=== PATIENT | female | born 1940 | race Two or more races ===

== ENCOUNTER → 2021-11-13 | Outpatient (CLI) | payer MEDICARE | END | disposition home or self-care (01) | LOC: LAB 09:39 → LAB SHORT 09:39 | DX: R30.0 Dysuria (principal) | CPT/HCPCS: 87077; 87086; 87186 ==

== ENCOUNTER 2021-12-17 11:57 | Emergency (ER) | payer MEDICARE ==
[~2021-12-17] VITALS: Ht 154.9 cm; Wt 93.4 kg
[2021-12-17] MEDS ORDERED: Prinivil10 MG PO (12:23)
[2021-12-17] MEDS ORDERED: BETAPACE PO (12:23)
[2021-12-17] MEDS ORDERED: GABA100 PO (12:24)
[2021-12-17] MEDS ORDERED: ZOLOFT50 MG PO (12:24)
[2021-12-17] MEDS ORDERED: BUSPIRONE HCL5 M6 PO (12:24)
[2021-12-17] MEDS ORDERED: XARELTO20 M1 PO (12:24)
[2021-12-17 13:00] LABS: BASOPHILS ABSOLUTE AUTO 0.03 K/mm3 (0.00-0.23); BASOPHILS PERCENT AUTO 0 % (0-2); EOSINOPHILS ABSOLUTE AUTO 0.22 K/mm3 (0.00-0.68); EOSINOPHILS PERCENT AUTO 3 % (0-6); Hematocrit 41.1 % (33.0-51.0); Hemoglobin 13.3 g/dL (11.5-16.0); IMMATURE GRAN ABSOLUTE AUTO 0.01 K/mm3 (0.00-0.10); IMMATURE GRAN PERCENT AUTO 0 % (0-1); LYMPHOCYTES ABSOLUTE AUTO 2.82 K/mm3 (0.84-5.20); LYMPHOCYTES PERCENT AUTO 41 % (21-46); MONOCYTES ABSOLUTE AUTO 0.52 K/mm3 (0.16-1.47); MONOCYTES PERCENT AUTO 8 % (4-13); Mean Corpuscular HGB 28.6 pg (26.0-34.0); Mean Corpuscular HGB Conc 32.4 g/dL (31.5-36.5); Mean Corpuscular Volume 88 fL (80-100); Mean Platelet Volume 12.3 fL (9.1-12.4); NEUTROPHILS ABSOLUTE AUTO 3.34 K/mm3 (1.96-9.15); NEUTROPHILS PERCENT AUTO 48 % (41-73); Platelet Count 174 K/mm3 (150-400); RDW Coefficient Variation 13.4 % (11.7-14.2); RDW Standard Deviation 43.3 fL (35.1-46.3); Red Blood Cell Count 4.65 M/mm3 (3.80-5.20); White Blood Cell Count 6.94 K/mm3 (4.00-11.30)
[2021-12-17 13:22] LABS: Albumin, Blood 2.8 g/dL (3.4-5.0); Albumin/Globulin Ratio 0.8 (0.8-1.8); Bilirubin, Total 0.7 mg/dL (0.1-1.0); Bun/Creatinine Ratio 25.1 (12.0-20.0); Calcium, Blood 9.7 mg/dL (8.5-10.1); Creatinine, Blood 0.76 mg/dL (0.40-1.00); Globulin, Blood 3.7 g/dL (2.2-4.0); Potassium, Blood 3.7 mmol/L (3.5-5.5); Total Protein, Blood 6.5 g/dL (6.4-8.2)
== END 2021-12-17 15:09 | disposition home or self-care (01) ==
LOC: ER 11:57
PROVIDERS: Student in an Organized Health Care Education/Training Program
DX: R07.89 Other chest pain (principal); R00.1 Bradycardia, unspecified; Z88.2 Allergy status to sulfonamides; Z79.899 Other long term (current) drug therapy; Z79.01 Long term (current) use of anticoagulants; I48.91 Unspecified atrial fibrillation; Z87.891 Personal history of nicotine dependence
CPT/HCPCS: 36415; 71046; 80053; 83735; 84484; 85025; 93005; 93010; 96361; 96374; 96375; 99285-25; A9270; J2405; J7030

== ENCOUNTER 2021-12-24 09:14 | Emergency (ER) | payer MEDICARE ==
[~2021-12-24] VITALS: Ht 154.9 cm; Wt 93.9 kg
[~2021-12-24 09:14] MED LIST: BETAPACE PO; BUSPIRONE HCL5 M6 PO; GABA100 PO; Prinivil10 MG PO; XARELTO20 M1 PO; ZOLOFT50 MG PO
[2021-12-24 10:59] LABS: BASOPHILS ABSOLUTE AUTO 0.03 K/mm3 (0.00-0.23); BASOPHILS PERCENT AUTO 1 % (0-2); EOSINOPHILS ABSOLUTE AUTO 0.27 K/mm3 (0.00-0.68); EOSINOPHILS PERCENT AUTO 4 % (0-6); Hematocrit 41.7 % (33.0-51.0); Hemoglobin 13.9 g/dL (11.5-16.0); IMMATURE GRAN ABSOLUTE AUTO 0.02 K/mm3 (0.00-0.10); IMMATURE GRAN PERCENT AUTO 0 % (0-1); LYMPHOCYTES ABSOLUTE AUTO 2.28 K/mm3 (0.84-5.20); LYMPHOCYTES PERCENT AUTO 35 % (21-46); MONOCYTES PERCENT AUTO 8 % (4-13); Mean Corpuscular HGB 29.4 pg (26.0-34.0); Mean Corpuscular HGB Conc 33.3 g/dL (31.5-36.5); Mean Corpuscular Volume 88 fL (80-100); Mean Platelet Volume 12.4 fL (9.1-12.4); NEUTROPHILS PERCENT AUTO 53 % (41-73); Platelet Count 178 K/mm3 (150-400); RDW Coefficient Variation 13.5 % (11.7-14.2); RDW Standard Deviation 44.3 fL (35.1-46.3); Red Blood Cell Count 4.72 M/mm3 (3.80-5.20)
[2021-12-24 11:16] LABS: Albumin, Blood 3.1 g/dL (3.4-5.0); Albumin/Globulin Ratio 0.9 (0.8-1.8); Bilirubin, Total 0.9 mg/dL (0.1-1.0); Bun/Creatinine Ratio 18.1 (12.0-20.0); Calcium, Blood 9.3 mg/dL (8.5-10.1); Creatinine, Blood 0.78 mg/dL (0.40-1.00); Globulin, Blood 3.6 g/dL (2.2-4.0); Potassium, Blood 4.1 mmol/L (3.5-5.5); Total Protein, Blood 6.7 g/dL (6.4-8.2)
[2021-12-24 11:26] LABS: Source, Urine Clean Catch
[2021-12-24 11:32] LABS: Bilirubin, Urine Neg (Neg); Blood, Urine Neg (Neg); Glucose Qualitative, Urine Neg (Neg); Ketones, Urine Neg (Neg); Leukocyte Esterase, Urine Neg (Neg); Nitrite, Urine Neg (Neg); Protein, Urine Neg (Neg); Urobilinogen, Urine NORM (Normal)
[2021-12-24 11:45] LABS: Appearance, Urine Clear (Clear); Color, Urine Pale Yellow (P-Yellow)
== END 2021-12-24 13:48 | disposition home or self-care (01) ==
LOC: ER 09:14
PROVIDERS: Emergency Medicine
DX: I10 Essential (primary) hypertension (principal); I48.91 Unspecified atrial fibrillation; Z88.2 Allergy status to sulfonamides; Z79.899 Other long term (current) drug therapy
CPT/HCPCS: 70491; 71045; 80053; 81003; 85025; 86850; 86900; 86901; 93005; 93010; J2405; Q9967

== ENCOUNTER 2022-11-05 16:57 | Emergency (ER) | payer MEDICARE ==
[~2022-11-05] VITALS: Ht 154.9 cm; Wt 92.5 kg
[2022-11-05 18:26] LABS: BASOPHILS ABSOLUTE AUTO 0.04 K/mm3 (0.00-0.23); BASOPHILS PERCENT AUTO 1 % (0-2); EOSINOPHILS ABSOLUTE AUTO 0.26 K/mm3 (0.00-0.68); EOSINOPHILS PERCENT AUTO 3 % (0-6); Hematocrit 40.4 % (33.0-51.0); Hemoglobin 13.4 g/dL (11.5-16.0); IMMATURE GRAN ABSOLUTE AUTO 0.02 K/mm3 (0.00-0.10); IMMATURE GRAN PERCENT AUTO 0 % (0-1); LYMPHOCYTES ABSOLUTE AUTO 2.36 K/mm3 (0.84-5.20); LYMPHOCYTES PERCENT AUTO 31 % (21-46); MONOCYTES ABSOLUTE AUTO 0.57 K/mm3 (0.16-1.47); MONOCYTES PERCENT AUTO 7 % (4-13); Mean Corpuscular HGB 29.1 pg (26.0-34.0); Mean Corpuscular HGB Conc 33.2 g/dL (31.5-36.5); Mean Corpuscular Volume 88 fL (80-100); Mean Platelet Volume 11.6 fL (9.1-12.4); NEUTROPHILS ABSOLUTE AUTO 4.49 K/mm3 (1.96-9.15); NEUTROPHILS PERCENT AUTO 58 % (41-73); Platelet Count 193 K/mm3 (150-400); RDW Coefficient Variation 13.8 % (11.7-14.2); RDW Standard Deviation 44.5 fL (35.1-46.3); Red Blood Cell Count 4.61 M/mm3 (3.80-5.20); White Blood Cell Count 7.74 K/mm3 (4.00-11.30)
[2022-11-05 18:47] LABS: Albumin, Blood 2.9 g/dL (3.4-5.0); Albumin/Globulin Ratio 0.8 (0.8-1.8); Bilirubin, Total 0.5 mg/dL (0.1-1.0); Bun/Creatinine Ratio 23.2 (12.0-20.0); Calcium, Blood 8.9 mg/dL (8.5-10.1); Creatinine, Blood 0.78 mg/dL (0.40-1.00); Globulin, Blood 3.5 g/dL (2.2-4.0); Potassium, Blood 3.9 mmol/L (3.5-5.5); Total Protein, Blood 6.4 g/dL (6.4-8.2)
[2022-11-05 19:14] LABS: Influenza A, PCR NEGATIVE (NEGATIVE); Influenza B, PCR NEGATIVE (NEGATIVE); Resp Syncytial Virus, PCR NEGATIVE (NEGATIVE); SARS-Cov-2 (COVID-19) PCR, MMC NEGATIVE (NEGATIVE)
[2022-11-05 20:12] VITALS: BP 144/76
== END 2022-11-05 22:11 | disposition home or self-care (01) ==
LOC: ER 16:57
PROVIDERS: Emergency Medicine; Student in an Organized Health Care Education/Training Program
DX: R07.89 Other chest pain (principal); Z88.2 Allergy status to sulfonamides; Z79.899 Other long term (current) drug therapy; I10 Essential (primary) hypertension; I48.91 Unspecified atrial fibrillation; Z87.891 Personal history of nicotine dependence; Z20.822 Contact with and (suspected) exposure to COVID-19
CPT/HCPCS: 0241U; 71046; 80053; 83880; 84484; 85025; 93005; 93010; 99285-25

== ENCOUNTER → 2022-11-05 | Outpatient (CLI) | payer MEDICARE | END | disposition home or self-care (01) | LOC: LAB 16:37 → LAB SHORT 16:37 | DX: R07.9 Chest pain, unspecified (principal) | CPT/HCPCS: 84484 ==

== ENCOUNTER 2023-03-17 11:52 | Emergency (ER) | payer MEDICARE ==
[~2023-03-17] VITALS: Ht 154.9 cm; Wt 95.2 kg
[2023-03-17 12:56] LABS: BASOPHILS ABSOLUTE AUTO 0.05 K/mm3 (0.00-0.23); BASOPHILS PERCENT AUTO 1 % (0-2); EOSINOPHILS ABSOLUTE AUTO 0.32 K/mm3 (0.00-0.68); EOSINOPHILS PERCENT AUTO 5 % (0-6); Hematocrit 46.6 % (33.0-51.0); Hemoglobin 15.4 g/dL (11.5-16.0); IMMATURE GRAN ABSOLUTE AUTO 0.02 K/mm3 (0.00-0.10); IMMATURE GRAN PERCENT AUTO 0 % (0-1); LYMPHOCYTES ABSOLUTE AUTO 2.35 K/mm3 (0.84-5.20); LYMPHOCYTES PERCENT AUTO 35 % (21-46); MONOCYTES ABSOLUTE AUTO 0.42 K/mm3 (0.16-1.47); MONOCYTES PERCENT AUTO 6 % (4-13); Mean Corpuscular HGB 29.2 pg (26.0-34.0); Mean Corpuscular Volume 88 fL (80-100); Mean Platelet Volume 11.8 fL (9.1-12.4); NEUTROPHILS ABSOLUTE AUTO 3.56 K/mm3 (1.96-9.15); NEUTROPHILS PERCENT AUTO 53 % (41-73); Platelet Count 215 K/mm3 (150-400); RDW Coefficient Variation 13.2 % (11.7-14.2); RDW Standard Deviation 43.1 fL (35.1-46.3); Red Blood Cell Count 5.28 M/mm3 (3.80-5.20); White Blood Cell Count 6.72 K/mm3 (4.00-11.30)
[2023-03-17 13:15] LABS: Albumin, Blood 3.2 g/dL (3.4-5.0); Albumin/Globulin Ratio 0.7 (0.8-1.8); Bilirubin, Total 0.7 mg/dL (0.1-1.0); Bun/Creatinine Ratio 22.1 (12.0-20.0); Calcium, Blood 9.7 mg/dL (8.5-10.1); Creatinine, Blood 0.86 mg/dL (0.40-1.00); Globulin, Blood 4.3 g/dL (2.2-4.0); Total Protein, Blood 7.5 g/dL (6.4-8.2)
[2023-03-17] MEDS ORDERED: Metoclopramide HCl 5MG / ML 2ML Vial IV ONE (16:30)
[2023-03-17] MEDS ORDERED: DiphenhydrAMINE HCl 50 MG/ML 1ML Vial IV ONE (16:30)
[2023-03-17 20:00] VITALS: BP 148/82
[2023-03-17] MEDS ORDERED: Ketorolac Tromethamine 30mg Vial IV ONE (20:05)
[2023-03-17] MEDS ORDERED: RX Prepack 2 Tabs Ondansetron ODT 4MG UD ONE (20:10)
[2023-03-17] MEDS ORDERED: Rivaroxaban 10 MG Tab PO ONE (20:10)
[2023-03-17] MEDS ORDERED: XARELTO20 M1 PO (20:14)
[2023-03-17] MEDS ORDERED: BUSPIRONE HCL5 M6 PO (20:14)
[2023-03-17] MEDS ORDERED: ZOLOFT50 MG PO (20:14)
[2023-03-17] MEDS ORDERED: Prinivil10 MG PO (20:14)
== END 2023-03-17 20:39 | disposition home or self-care (01) ==
LOC: ER 11:52
PROVIDERS: Emergency Medicine
DX: R51.9 Headache, unspecified (principal); R29.898 Other symptoms and signs involving the musculoskeletal system; Z88.2 Allergy status to sulfonamides; Z79.899 Other long term (current) drug therapy; I10 Essential (primary) hypertension; I48.91 Unspecified atrial fibrillation; Z87.891 Personal history of nicotine dependence
CPT/HCPCS: 70450; 70496; 70498; 80053; 82947; 85025; 85651; 93005; 93010; 96374; 96375; 99284-25; A9270; J1200; J2765; Q9967

== ENCOUNTER 2023-08-14 19:41 | Emergency (ER) | payer MEDICARE ==
[~2023-08-14] VITALS: Ht 154.9 cm; Wt 113.4 kg
[~2023-08-14 19:41] MED LIST changes: +ELIQUIS5 M2 PO; +LISI20 PO
[2023-08-14] MEDS ORDERED: Ondansetron HCl 2 MG / ML 2ML Vial IV PRN (19:50)
[2023-08-14 20:09] LABS: BASOPHILS ABSOLUTE AUTO 0.03 K/mm3 (0.00-0.23); BASOPHILS PERCENT AUTO 0 % (0-2); EOSINOPHILS ABSOLUTE AUTO 0.28 K/mm3 (0.00-0.68); EOSINOPHILS PERCENT AUTO 4 % (0-6); Hematocrit 42.9 % (33.0-51.0); Hemoglobin 13.8 g/dL (11.5-16.0); IMMATURE GRAN ABSOLUTE AUTO 0.01 K/mm3 (0.00-0.10); IMMATURE GRAN PERCENT AUTO 0 % (0-1); LYMPHOCYTES ABSOLUTE AUTO 2.61 K/mm3 (0.84-5.20); LYMPHOCYTES PERCENT AUTO 33 % (21-46); MONOCYTES ABSOLUTE AUTO 0.51 K/mm3 (0.16-1.47); MONOCYTES PERCENT AUTO 6 % (4-13); Mean Corpuscular HGB 28.9 pg (26.0-34.0); Mean Corpuscular HGB Conc 32.2 g/dL (31.5-36.5); Mean Corpuscular Volume 90 fL (80-100); Mean Platelet Volume 11.7 fL (9.1-12.4); NEUTROPHILS PERCENT AUTO 57 % (41-73); Platelet Count 196 K/mm3 (150-400); RDW Coefficient Variation 13.5 % (11.7-14.2); RDW Standard Deviation 44.5 fL (35.1-46.3); Red Blood Cell Count 4.77 M/mm3 (3.80-5.20); White Blood Cell Count 7.94 K/mm3 (4.00-11.30)
[2023-08-14 20:31] LABS: Albumin, Blood 3.2 g/dL (3.4-5.0); Albumin/Globulin Ratio 0.9 (0.8-1.8); Bilirubin, Total 0.5 mg/dL (0.1-1.0); Calcium, Blood 9.2 mg/dL (8.5-10.1); Creatinine, Blood 0.88 mg/dL (0.40-1.00); Globulin, Blood 3.7 g/dL (2.2-4.0); Potassium, Blood 3.7 mmol/L (3.5-5.5); Total Protein, Blood 6.9 g/dL (6.4-8.2)
[2023-08-14 20:34] LABS: Influenza A, PCR NEGATIVE (NEGATIVE); Influenza B, PCR NEGATIVE (NEGATIVE); Resp Syncytial Virus, PCR NEGATIVE (NEGATIVE); SARS-Cov-2 (COVID-19) PCR, MMC NEGATIVE (NEGATIVE)
[2023-08-14] MEDS ORDERED: Famotidine 10 MG/ML 2ML Vial IV ONE (21:50)
[2023-08-14] MEDS ORDERED: Mag Hydrox/AL Hydrox/Simeth 30 ML UDC PO ONE (21:50)
[2023-08-14] MEDS ORDERED: NS 1,000 ML IV SCH (21:50)
[2023-08-14] MEDS ORDERED: LISI20 PO (22:29)
[2023-08-14] MEDS ORDERED: ESCI20 PO (22:29)
[2023-08-14 22:30] VITALS: BP 146/75
[2023-08-14] MEDS ORDERED: ALBU90OI INH ×2 (22:30→23:03)
[2023-08-14] MEDS ORDERED: RX Prepack 2 Tabs Ondansetron ODT 4MG UD ONE (23:00)
[2023-08-14] MEDS ORDERED: ONDA4ODT MM (23:03)
[2023-08-14] MEDS ORDERED: METO10 PO (23:03)
== END 2023-08-14 23:22 | disposition home or self-care (01) ==
LOC: ER 19:41
PROVIDERS: Student in an Organized Health Care Education/Training Program
DX: A08.4 Viral intestinal infection, unspecified (principal); E86.0 Dehydration; F41.9 Anxiety disorder, unspecified; I48.91 Unspecified atrial fibrillation; I10 Essential (primary) hypertension; Z87.891 Personal history of nicotine dependence; Z88.2 Allergy status to sulfonamides; Z79.899 Other long term (current) drug therapy
CPT/HCPCS: 0241U; 80053; 85025; 96374; 96375; 99283-25; A9270; J2405; J7030

== ENCOUNTER 2023-12-28 18:28 | Emergency (ER) | payer MEDICARE ==
[~2023-12-28] VITALS: Ht 154.9 cm; Wt 95.2 kg
[~2023-12-28 18:28] MED LIST changes: +ALBU90OI INH; +ESCI20 PO; +METO10 PO; +ONDA4ODT MM
[2023-12-28 18:54] LABS: BASOPHILS ABSOLUTE AUTO 0.04 K/mm3 (0.00-0.23); BASOPHILS PERCENT AUTO 1 % (0-2); EOSINOPHILS ABSOLUTE AUTO 0.26 K/mm3 (0.00-0.68); EOSINOPHILS PERCENT AUTO 4 % (0-6); Hematocrit 43.6 % (33.0-51.0); Hemoglobin 14.6 g/dL (11.5-16.0); IMMATURE GRAN ABSOLUTE AUTO 0.02 K/mm3 (0.00-0.10); IMMATURE GRAN PERCENT AUTO 0 % (0-1); LYMPHOCYTES ABSOLUTE AUTO 2.16 K/mm3 (0.84-5.20); LYMPHOCYTES PERCENT AUTO 32 % (21-46); MONOCYTES ABSOLUTE AUTO 0.42 K/mm3 (0.16-1.47); MONOCYTES PERCENT AUTO 6 % (4-13); Mean Corpuscular HGB Conc 33.5 g/dL (31.5-36.5); Mean Corpuscular Volume 90 fL (80-100); Mean Platelet Volume 12.2 fL (9.1-12.4); NEUTROPHILS ABSOLUTE AUTO 3.96 K/mm3 (1.96-9.15); NEUTROPHILS PERCENT AUTO 58 % (41-73); Platelet Count 205 K/mm3 (150-400); RDW Coefficient Variation 13.4 % (11.7-14.2); RDW Standard Deviation 43.9 fL (35.1-46.3); Red Blood Cell Count 4.86 M/mm3 (3.80-5.20); White Blood Cell Count 6.86 K/mm3 (4.00-11.30)
[2023-12-28 19:21] LABS: Albumin, Blood 3.3 g/dL (3.4-5.0); Albumin/Globulin Ratio 0.9 (0.8-1.8); Bilirubin, Total 0.6 mg/dL (0.1-1.0); Bun/Creatinine Ratio 11.7 (12.0-20.0); Calcium, Blood 9.6 mg/dL (8.5-10.1); Creatinine, Blood 1.54 mg/dL (0.40-1.00); Globulin, Blood 3.5 g/dL (2.2-4.0); Potassium, Blood 4.2 mmol/L (3.5-5.5); Total Protein, Blood 6.8 g/dL (6.4-8.2)
[2023-12-28] MEDS ORDERED: Meclizine HCl 25 MG Tab PO ONE (21:10)
[2023-12-28] MEDS ORDERED: MOTION RELIEF25 MG PO (21:23)
[2023-12-28 21:45] VITALS: BP 151/73
== END 2023-12-28 23:05 | disposition home or self-care (01) ==
LOC: ER 18:28
PROVIDERS: Emergency Medicine
DX: H81.399 Other peripheral vertigo, unspecified ear (principal); N17.9 Acute kidney failure, unspecified; R07.89 Other chest pain; I48.91 Unspecified atrial fibrillation
CPT/HCPCS: 71046; 80053; 83690; 84484; 85025; 99285-25; A9270

== ENCOUNTER 2024-09-14 16:44 | Observation (INO) | payer MEDICARE ==
[~2024-09-14] VITALS: Ht 154.9 cm; Wt 96.2 kg
[~2024-09-14 16:44] MED LIST changes: +MOTION RELIEF25 MG PO
[2024-09-14 17:23] LABS: BASOPHILS ABSOLUTE AUTO 0.04 K/mm3 (0.00-0.23); BASOPHILS PERCENT AUTO 1 % (0-2); EOSINOPHILS ABSOLUTE AUTO 0.28 K/mm3 (0.00-0.68); EOSINOPHILS PERCENT AUTO 5 % (0-6); Hematocrit 45.6 % (33.0-51.0); Hemoglobin 15.2 g/dL (11.5-16.0); IMMATURE GRAN ABSOLUTE AUTO 0.02 K/mm3 (0.00-0.10); IMMATURE GRAN PERCENT AUTO 0 % (0-1); LYMPHOCYTES ABSOLUTE AUTO 1.26 K/mm3 (0.84-5.20); LYMPHOCYTES PERCENT AUTO 21 % (21-46); MONOCYTES ABSOLUTE AUTO 0.49 K/mm3 (0.16-1.47); MONOCYTES PERCENT AUTO 8 % (4-13); Mean Corpuscular HGB Conc 33.3 g/dL (31.5-36.5); Mean Corpuscular Volume 88 fL (80-100); NEUTROPHILS ABSOLUTE AUTO 4.00 K/mm3 (1.96-9.15); NEUTROPHILS PERCENT AUTO 66 % (41-73); NRBC ABSOLUTE 0.00 K/mm3 (0.00-0.02); NRBC Auto 0.0 /100 WBC (0.0-0.2); Platelet Count 233 K/mm3 (150-400); RDW Coefficient Variation 13.5 % (11.7-14.2); RDW Standard Deviation 43.8 fL (35.1-46.3)
[2024-09-14 17:39] LABS: Alanine Aminotransfer (ALT/SGP 164.0 U/L (12-78); Albumin, Blood 3.0 g/dL (3.4-5.0); Albumin/Globulin Ratio 0.6 (0.8-1.8); Anion Gap 9.0 mmol/L (3-11); Aspartate Aminotrans (AST/SGOT 105.0 U/L (12-37); Bilirubin, Total 0.6 mg/dL (0.1-1.0); Blood Urea Nitrogen 19.0 mg/dL (8-24); CO2, Blood 26.0 mmol/L (21-32); Calcium, Blood 9.6 mg/dL (8.5-10.1); Chloride, Blood 106.0 mmol/L (98-108); Creatinine, Blood 1.05 mg/dL (0.40-1.00); Globulin, Blood 4.7 g/dL (2.2-4.0); Glucose, Blood 122.0 mg/dL (70-99); Potassium, Blood 4.4 mmol/L (3.5-5.5); Sodium, Blood 137.0 mmol/L (136-145); Total Protein, Blood 7.7 g/dL (6.4-8.2)
[2024-09-14] MEDS ORDERED: HYDROcodone 5-APAP 325 TAB PO PRN (22:55)
[2024-09-14] MEDS ORDERED: Ondansetron HCl 2 MG / ML 2ML Vial IV PRN (23:00)
[2024-09-15] VITALS (17 sets, daily range): BP systolic 116–172; BP diastolic 55–89
[2024-09-15] MEDS ORDERED: ATOR40TA PO (01:11)
[2024-09-15] MEDS ORDERED: CARV3.125 PO (01:12)
[2024-09-15] MEDS ORDERED: Aspir 8181 MG PO (01:14)
[2024-09-15] MEDS ORDERED: DESV50 PO (01:21)
[2024-09-15 05:28] LABS: BASOPHILS ABSOLUTE AUTO 0.03 K/mm3 (0.00-0.23); BASOPHILS PERCENT AUTO 1 % (0-2); EOSINOPHILS ABSOLUTE AUTO 0.33 K/mm3 (0.00-0.68); EOSINOPHILS PERCENT AUTO 5 % (0-6); Hematocrit 41.6 % (33.0-51.0); Hemoglobin 13.6 g/dL (11.5-16.0); IMMATURE GRAN ABSOLUTE AUTO 0.02 K/mm3 (0.00-0.10); IMMATURE GRAN PERCENT AUTO 0 % (0-1); LYMPHOCYTES ABSOLUTE AUTO 1.86 K/mm3 (0.84-5.20); LYMPHOCYTES PERCENT AUTO 30 % (21-46); MONOCYTES ABSOLUTE AUTO 0.59 K/mm3 (0.16-1.47); MONOCYTES PERCENT AUTO 9 % (4-13); Mean Corpuscular HGB Conc 32.7 g/dL (31.5-36.5); Mean Corpuscular Volume 91 fL (80-100); NEUTROPHILS ABSOLUTE AUTO 3.48 K/mm3 (1.96-9.15); NEUTROPHILS PERCENT AUTO 55 % (41-73); NRBC ABSOLUTE 0.00 K/mm3 (0.00-0.02); NRBC Auto 0.0 /100 WBC (0.0-0.2); Platelet Count 169 K/mm3 (150-400); RDW Coefficient Variation 13.8 % (11.7-14.2); RDW Standard Deviation 45.9 fL (35.1-46.3)
[2024-09-15 05:58] LABS: Alanine Aminotransfer (ALT/SGP 123.0 U/L (12-78); Albumin, Blood 2.7 g/dL (3.4-5.0); Albumin/Globulin Ratio 0.7 (0.8-1.8); Anion Gap 7.0 mmol/L (3-11); Aspartate Aminotrans (AST/SGOT 73.0 U/L (12-37); Bilirubin, Total 0.6 mg/dL (0.1-1.0); Blood Urea Nitrogen 20.0 mg/dL (8-24); CO2, Blood 27.0 mmol/L (21-32); Calcium, Blood 9.0 mg/dL (8.5-10.1); Chloride, Blood 107.0 mmol/L (98-108); Creatinine, Blood 0.93 mg/dL (0.40-1.00); Globulin, Blood 3.9 g/dL (2.2-4.0); Glucose, Blood 125.0 mg/dL (70-99); Magnesium, Blood 2.0 mg/dL (1.6-2.4); Potassium, Blood 3.7 mmol/L (3.5-5.5); Sodium, Blood 137.0 mmol/L (136-145); Total Protein, Blood 6.6 g/dL (6.4-8.2)
--- NOTE | 2024-09-15 06:14 | NUR ---
SHIFT SUMMARY/PHYSICIAN COMMMUNICATION DR MENDOSA CURRENTLY IN PT RM @0615 DISCUSSING LAP YESSI. PT AOX4. BP ELEVATED UPON ARRIVING TO UNIT HOWEVER BP WAS TAKEN RIGHT AFTER TRANSFERRING TO 226 BED, WHEN BP RECHECKED IT WAS 141/72. REST OF VSS. TELE NSR HR 63. REPORTS A LITTLE DIZZINESS UPON INITIAL ARRIVAL, HOWEVER STATES SHE DOES HAVE A HX OF VERTIGO & PT DENIES THE NIGHT CONTINUES. PT REPORTS 4/10 MID/RUQ ABD PAIN & THEN 1/10 THE NIGHT PROGRESSED, DENIED NEED FOR ANY PAIN MEDICATION. DENIES ANY NAUSEA OR EMESIS. REPORTS LACK OF APPETITE FOR 3 DAYS. STATES LAST BM 09/14. STILL PASSING FLATUS. CALL LIGHT IN REACH & PLAN FOR SURGERY THIS AM APPROX 0800. WILL REPORT TO DAY RN.
[2024-09-15] MEDS ORDERED: CeFAZolin Sodium 2,000 MG in NS 100 ML IV SCH (06:50)
--- NOTE | 2024-09-15 07:22 | NUR ---
[facility]
[2024-09-15] MEDS ORDERED: Bupivacaine 0.5% HCl 5 MG/ML 30MLVIAL ONE (07:25)
[2024-09-15] MEDS ORDERED: CeFAZolin Sodium 2,000 MG VIAL ONE (07:27)
[2024-09-15] MEDS ORDERED: Albuterol 2.5 MG/3 ML VIAL INH PRN (07:30)
[2024-09-15] MEDS ORDERED: FentaNYL Citrate 50 MCG/ML 2 ML Injection ONE ×2 (07:38→08:33)
[2024-09-15] MEDS ORDERED: Lidocaine HCl 4% 5 ML SDA ONE (07:43)
[2024-09-15] MEDS ORDERED: Ondansetron HCl 2 MG / ML 2ML Vial ONE (08:11)
[2024-09-15] MEDS ORDERED: Dexamethasone Sod Phos 10 MG/ML 1ML VIAL ONE (08:11)
[2024-09-15] MEDS ORDERED: ePHEDrine Sulfate 50 MG/ML 1ML Injection ONE (08:22)
[2024-09-15] MEDS ORDERED: Sugammadex Sodium 200 MG/2ML SDV (100 MG/ML) ONE (08:29)
[2024-09-15] MEDS ORDERED: FentaNYL Citrate 50 MCG/ML 2 ML Injection IV PRN (09:30)
--- NOTE | 2024-09-15 10:27 | NUR ---
RETURN TO SURGICAL UNIT POST OP ASSESSMENT CHARTED. DROWSY BUT APPROP. ONLY REQUESTING ICE WATER, GIVEN. DENIES N/V OR PAIN. FRIENDS TO BEDSIDE.
--- NOTE | 2024-09-15 18:17 | NUR ---
SHIFT SUMMARY HAS DONE WELL POST OP. APPETITE HAS RETURNED. PAIN IS CONTROLLED. PASSING GAS & VOIDING. PLEASANT & COOPERATIVE.
[2024-09-16 00:57] VITALS: BP 139/74
[2024-09-16] MEDS ORDERED: DEXTROMETHORPHAN/BENZOCAINE 1 EACH LOZENGE MT PRN (01:15)
--- NOTE | 2024-09-16 01:21 | NUR ---
ANXIOUS/PHYSICIAN COMMUNICATION APPROX 0020 PT CALLED RN INTO STATING SHE HAS "NEW PAIN" POINTING TO LLQ ABD STATES ITS 10/07, PT TALKING VERY FAST, RUBBING STOMACH. STATES "I THINK I PULLED SOMETHING OR RIPPED MY STITCHES". INFORMED PT SURGICAL SITES LOOK OKAY. PT CONTINUES TALKING STATING SHE IS WORRIED BECAUSE HER HEAD FEELS COOL WHICH THE LAST TIME THIS HAPPENED SHE ALMOST PASSED OUT & HER BLOOD PRESSURE WAS IN THE 90'S. PT VERY ANXIOUS REGARDING EVERYTHING. PT HAS A HX PANIC ATTACKS. I INFORMED PT HER TEMP OF HER FOREHEAD WOULD NOT DICTATE HER BP. ASKED PT IF SHE FELT ANXIOUS OR WORRIED, PT AGREED THAT HER "COUGH" IS WORRYING HER THAT SHE MIGHT HURT SOMETHING INSIDE HER. VS TAKEN & STABLE. INFORMED DR LEE OF INCREASED ANXIETY & HE ORDERED HOME LORAZEPAM DOSE. WILL ADMINISTER & REASSESS.
[2024-09-16 04:12] VITALS: BP 120/60
[2024-09-16 05:50] LABS: BASOPHILS ABSOLUTE AUTO 0.02 K/mm3 (0.00-0.23); BASOPHILS PERCENT AUTO 0 % (0-2); EOSINOPHILS ABSOLUTE AUTO 0.08 K/mm3 (0.00-0.68); EOSINOPHILS PERCENT AUTO 1 % (0-6); Hematocrit 36.1 % (33.0-51.0); Hemoglobin 11.9 g/dL (11.5-16.0); IMMATURE GRAN ABSOLUTE AUTO 0.02 K/mm3 (0.00-0.10); IMMATURE GRAN PERCENT AUTO 0 % (0-1); LYMPHOCYTES ABSOLUTE AUTO 1.36 K/mm3 (0.84-5.20); LYMPHOCYTES PERCENT AUTO 16 % (21-46); MONOCYTES ABSOLUTE AUTO 0.78 K/mm3 (0.16-1.47); MONOCYTES PERCENT AUTO 9 % (4-13); Mean Corpuscular HGB Conc 33.0 g/dL (31.5-36.5); Mean Corpuscular Volume 89 fL (80-100); NEUTROPHILS ABSOLUTE AUTO 6.32 K/mm3 (1.96-9.15); NEUTROPHILS PERCENT AUTO 74 % (41-73); NRBC ABSOLUTE 0.00 K/mm3 (0.00-0.02); NRBC Auto 0.0 /100 WBC (0.0-0.2); Platelet Count 164 K/mm3 (150-400); RDW Coefficient Variation 13.2 % (11.7-14.2); RDW Standard Deviation 43.2 fL (35.1-46.3)
[2024-09-16 06:18] LABS: Alanine Aminotransfer (ALT/SGP 92.0 U/L (12-78); Albumin, Blood 2.6 g/dL (3.4-5.0); Albumin/Globulin Ratio 0.7 (0.8-1.8); Anion Gap 8.0 mmol/L (3-11); Aspartate Aminotrans (AST/SGOT 55.0 U/L (12-37); Bilirubin, Total 0.8 mg/dL (0.1-1.0); Blood Urea Nitrogen 16.0 mg/dL (8-24); CO2, Blood 28.0 mmol/L (21-32); Calcium, Blood 8.8 mg/dL (8.5-10.1); Chloride, Blood 105.0 mmol/L (98-108); Creatinine, Blood 0.93 mg/dL (0.40-1.00); Globulin, Blood 3.8 g/dL (2.2-4.0); Glucose, Blood 132.0 mg/dL (70-99); Potassium, Blood 4.3 mmol/L (3.5-5.5); Sodium, Blood 137.0 mmol/L (136-145); Total Protein, Blood 6.4 g/dL (6.4-8.2)
--- NOTE | 2024-09-16 06:32 | NUR ---
SHIFT SUMMARY AOX4. POD 1-LAP YESSI/APPY. 4 LAP SITES TO ABD W/STERI STRIPS, C/D/I. NO DRAINAGE NOTED. DENIES N/V. HYPERACTIVE BT. + FLATUS. BELCHING. THIS AM PT REPORTS PAIN 3/10 & STATES LAST NIGHT WHEN HER PAIN WAS 8/10 SHE THINKS IT WAS R/T "GAS." VSS. TELE NSR HR 64. HAS VOIDED MULTIPLE TIMES. CALL LIGHT IN REACH & PT ABLE TO MAKE NEEDS KNOWN.
[2024-09-16 07:47] VITALS: BP 144/71
[2024-09-16] MEDS ORDERED: HYDR1TAB94 PO (09:06)
[2024-09-16 11:31] VITALS: BP 122/65
--- NOTE | 2024-09-16 12:29 | NUR ---
DISCHARGING REVIEWED DC INSTRUCTIONS W/PT; VERBALIZED UNDERSTANDING. REMOVED TELE AND RETURNED. PT SIGNED DC PAPERWORK. FINISHING LUNCH. ADVISED PT TO CALL WHEN FINISHED W/LUNCH SO IV MAY BE DC'D. AWAITING RIDE.
--- NOTE | 2024-09-16 13:20 | NUR ---
DISCHARGED AT 1340 DC'D IV, CATHETER INTACT. PT LEFT UNIT IN WC W/POSSESSIONS AND DC PAPERWORK IN HAND TO MEET RIDE OUTSIDE.
== END 2024-09-16 12:45 | disposition home or self-care (01) ==
LOC: ER 16:44 → SURS 16:45 → ER 22:53 → SURS 22:53 → ER 09-15 14:33 → SURS 09-16 12:45
PROVIDERS: Emergency Medicine; Internal Medicine; Surgery; ADMIT Student in an Organized Health Care Education/Training Program
PROC: 0DTJ4ZZ Resection of Appendix, Percutaneous Endoscopic Approach (ICD-10-PCS; principal; 2024-09-15 08:00)
PROC: 0FT44ZZ Resection of Gallbladder, Percutaneous Endoscopic Approach (ICD-10-PCS; principal; 2024-09-15 08:00)
DX: K80.12 Calculus of gallbladder with acute and chronic cholecystitis without obstruction (principal); K38.8 Other specified diseases of appendix; K43.6 Other and unspecified ventral hernia with obstruction, without gangrene; I48.0 Paroxysmal atrial fibrillation; I12.9 Hypertensive chronic kidney disease with stage 1 through stage 4 chronic kidney disease, or unspecified chronic kidney disease; E11.22 Type 2 diabetes mellitus with diabetic chronic kidney disease; N18.30 Chronic kidney disease, stage 3 unspecified; M19.90 Unspecified osteoarthritis, unspecified site; K21.9 Gastro-esophageal reflux disease without esophagitis; J45.909 Unspecified asthma, uncomplicated; E66.9 Obesity, unspecified; Z68.39 Body mass index [BMI] 39.0-39.9, adult; Z87.891 Personal history of nicotine dependence; Z91.148 Patient's other noncompliance with medication regimen for other reason; Z79.01 Long term (current) use of anticoagulants; Z79.82 Long term (current) use of aspirin; Z79.899 Other long term (current) drug therapy; Z88.2 Allergy status to sulfonamides
CPT/HCPCS: 36415; 71046; 74177; 76705; 80053; 83690; 83735; 84484; 85025; 88304; 93005; 93010; 99285-25; A9270; C1729; G0378; J0690; J1100; J2003; J2405; J2704; J3010; J7120; Q9967